=== PATIENT | female | born 1970 | race Caucasian/White ===

== ENCOUNTER 2016-10-21 16:09 | Emergency (ER) | payer OTHER ==
[~2016-10-21] VITALS: Ht 182.9 cm; Wt 59.8 kg
[~2016-10-21 16:09] MED LIST: ACEBUTOLOL200 MG PO; AMBIEN10 MG OR; AMBIEN5 MG PO; AMLODIPINE5 MG PO; B-121000 MC1 IM; B-123000 MCG SL; BUPROPION75 MG PO; CARAFATE1 GM/10 M1 OR; CETIRIZINE10 MG PO; CIPRO500 MG OR; CIPROFLOXACN500 MG PO; CLARITIN10 M1 PO; CLINDAMYCIN150 MG PO; CLINDAMYCIN300 M1 PO; CLONAZEPAM1 MG PO; CLONIDINE0.1 MG PO; COMPAZINE10 MG OR; COZAAR50 MG PO; CVS IRON45 MG OR; CYANOCOBALAM1000 MC1 IJ; CYANOCOBALAM1000 MCG IM; DILAUDID2 MG OR; DILAUDID8 MG PO; DOCUSATE CAL240 MG PO; EFFEXOR37.5 MG PO; ELAVIL; ENDOCET1 TA1 OR; ESTRACE1 MG OR; FERROUS SULF325 M3 PO; FIORICET PO; FLEXERIL OR; FLEXERIL10 MG PO; FLEXERIL5 MG PO; FLONASE NASAL50 MCG; FOLIC ACID1 MG OR; FUROSEMIDE20 MG PO; HYDROCHLOROT25 MG PO; IBUPROFEN600 MG PO; K-DUR/KLOR-CON10 ME1 OR; K-DUR/KLOR-CON10 MEQ OR; K-LOR20 MEQ OR; K-TABS10 MEQ PO; KEPPRA XR500 MG PO; KLOR-CON 88 MEQ PO; LEVETIRACETAM500 MG PO; LISINOP/HCTZ1 TAB PO; LISINOPRIL20 MG PO; LOPRESSOR50 M1; LORAZEPAM0.5 MG PO; LORTAB 5 OR; LORTAB 5/3255 MG PO; METHADONE40 MG PO; MOTRIN JR100 MG OR; MOTRIN600 MG/TAB PO; MOTRIN800 MG/TAB PO; NAPROXEN SOD500 MG PO; NEXIUM40 M1 OR; NICOTINE PATCH; NORCO1 TA2 PO; NYSTATIN100000 M1 MT; OMEPRAZOLE10 MG OR; OMEPRAZOLE40 MG OR; OMEPRAZOLE40 MG PO; ONDANSETRON4 MG PO; OS-CAL 500500 MG OR; OXYCODONE30 MG OR; PAROXETINE10 MG PO; PATADAY OP; PAXIL30 MG PO; PAXIL40 MG PO; PERCOCET 5/325M1 TAB OR; PERCOCET 5/325M1 TAB PO; PERCOCET1 TA2 OR; PERCOCET1 TA3 OR; PILOCARPINE HCL 1% OP; POT CHLORIDE10 ME1 PO; PRILOSEC40 MG PO; PRINZIDE1 TA1 PO; PROCHLORPER OR; PROMETHAZINE25 M1 PO; PROVENTIL HFA IN; PROVERA5 MG OR; PROZAC10 MG PO; REGLAN5 MG OR; REMERON45 MG PO; ROXICODONE30 MG OR; RYBIX ODT50 MG PO; SAPHRIS5 MG SL; SERTRALINE HCL50 MG PO; SYMBICORT1 AE1 IN; TORADOL PO; TRAMADOL HCL50 MG PO; TRAZODONE50 MG PO; ULTRAM50 M1 PO; ULTRAM50 MG OR; ULTRAM50 MG PO; VALIUM10 MG; VALIUM10 MG OR; VALIUM10 MG PO; VALIUM5 MG PO; VIGAMOX OP; VIGAMOX OS; VITAMIN D50000 UN1 OR; XANAX0.5 MG OR; XANAX1 MG OR; ZANAFLEX4 M1 OR; ZANAFLEX4 MG OR; ZESTRIL/PRI10 MG/TAB PO; ZOLOFT100 MG OR; ZPAK PO; ZYRTEC10 M3 PO; [UNRECOGNIZED DRUG - CODE] XX; [UNRECOGNIZED DRUG - OTHER] PO; [UNRECOGNIZED DRUG - REMARK]
[2016-10-21] MEDS ORDERED: PHENERGAN25 MG/TAB PO (16:18)
[2016-10-21] MEDS ORDERED: RANITIDINE150 M1 PO (16:18)
[2016-10-21] MEDS ORDERED: SYSTANE OP (16:20)
[2016-10-21] MEDS ORDERED: ULTRAM50 M1 PO (17:35)
[2016-10-21 17:40] LABS: URINE BILIRUBIN - DIPSTICK NEGATIVE (NEGATIVE); URINE BLOOD DIPSTICK NEGATIVE (NEGATIVE); URINE CLARITY CLEAR; URINE COLOR YELLOW; URINE GLUCOSE - DIPSTICK NEGATIVE (NEGATIVE); URINE KETONE NEGATIVE (NEGATIVE); URINE LEUK ESTERASE NEGATIVE (NEGATIVE); URINE NITRITE - DIPSTICK NEGATIVE (Negative); URINE PROTEIN - DIPSTICK NEGATIVE (NEG-TRACE); URINE SPECIFIC GRAVITY 1.015; URINE UROBILINOGEN - DIPSTICK 0.2 E.U./dL (0.2)
[2016-10-21] MEDS ORDERED: LORTAB 10-325 M1 TAB PO (17:53)
[2016-10-21 17:56] VITALS: BP 143/84
== END 2016-10-21 18:00 | disposition home or self-care (01) | DRG 605 ==
LOC: ED 16:09
PROVIDERS: Emergency Medicine
DX: S40.012A Contusion of left shoulder, initial encounter (principal); S00.93XA Contusion of unspecified part of head, initial encounter; S20.212A Contusion of left front wall of thorax, initial encounter; W01.10XA Fall on same level from slipping, tripping and stumbling with subsequent striking against unspecified object, initial encounter; Y93.9 Activity, unspecified; Y92.008 Other place in unspecified non-institutional (private) residence as the place of occurrence of the external cause

== ENCOUNTER 2017-01-03 19:09 | Inpatient (IN) | payer SELFPAY ==
[~2017-01-03] VITALS: Ht 177.8 cm; Wt 53.0 kg
[~2017-01-03 19:09] MED LIST changes: +LORTAB 10-325 M1 TAB PO; +PHENERGAN25 MG/TAB PO; +RANITIDINE150 M1 PO; +SYSTANE OP
[2017-01-03 20:11] LABS: HEMATOCRIT 44.8 % (37.0-47.0); HEMOGLOBIN 15.7 g/dl (12.0-16.0); IMMATURE GRANULOCYTES 0.4 % (0.0-1.0); MEAN CORPUSCULAR HGB 29.1 pG CALC (26.0-32.0); NEUT# 5.45 thou/uL (2.00-7.15); RED BLOOD COUNT 5.4 mill/uL (4.20-5.60); RED CELL DISTRI WIDTH 15.3 % (11.5-15.5)
[2017-01-03 20:13] LABS: URINE BILIRUBIN - DIPSTICK NEGATIVE (NEGATIVE); URINE BLOOD DIPSTICK NEGATIVE (NEGATIVE); URINE CLARITY SLIGHT CLOUDY; URINE COLOR YELLOW; URINE GLUCOSE - DIPSTICK NEGATIVE (NEGATIVE); URINE KETONE NEGATIVE (NEGATIVE); URINE LEUK ESTERASE NEGATIVE (NEGATIVE); URINE NITRITE - DIPSTICK NEGATIVE (Negative); URINE PROTEIN - DIPSTICK NEGATIVE (NEG-TRACE)
[2017-01-03 20:16] LABS: COCAINE NEGATIVE (NEGATIVE); METHADONE NEGATIVE (NEGATIVE); TETRAHYDROCANNABIONOL NEGATIVE (NEGATIVE)
[2017-01-03 20:17] LABS: BARBITURATES NEGATIVE (NEGATIVE); OXCYCODONE NEGATIVE (NEGATIVE); TRICYLIC ANTIDEPRESSANTS POSITIVE (NEGATIVE)
[2017-01-03 20:27] LABS: ALBUMIN 4.4 g/dL (3.2-5.0); ALKALINE PHOSPHATASE 87 u/l (38-126); ANION GAP 19 (6-22 (CALC)); BILIRUBIN, TOTAL 0.8 mg/dL (0.0-1.4); BUN 17 mg/dL (7-17); BUN/CREATININE RATIO 14 (12-20 (CALC)); CALCIUM 9.1 mg/dL (8.4-10.2); CARBON DIOXIDE 20 mmol/l (22-30); CHLORIDE 87 mmol/l (95-108); CREATININE 1.2 mg/dL (0.5-1.0); GFR 48 ML/MIN (>=60 (CALC)); GFR FOR AFR.AMER. 58 ML/MIN (>=60 (CALC)); GLUCOSE 119 mg/dL (65-105); POTASSIUM 2.7 mmol/l (3.5-5.1); SGOT/AST 35 u/l (14-36); SGPT/ALT 31 u/l (9-52); SODIUM 123 mmol/l (137-146); TOTAL PROTEIN 7.1 g/dL (6.3-8.2)
[2017-01-03 20:29] LABS: ETHYL ALCOHOL 0 mg/dl (0-30)
[2017-01-03 22:40] VITALS: BP 117/62
[2017-01-03 22:52] LABS: CALCIUM 8.5 mg/dL (8.4-10.2); CREATININE 1.2 mg/dL (0.5-1.0); POTASSIUM 3.5 mmol/l (3.5-5.1)
[2017-01-03 23:00] VITALS: BP 117/62
[2017-01-03 23:15] VITALS: BP 127/56
[2017-01-03 23:30] VITALS: BP 127/56
[2017-01-04] VITALS (14 sets, daily range): BP systolic 114–178; BP diastolic 52–84
[2017-01-04] MEDS ORDERED: ZOLPIDEM TARTRA10 MG PO (04:00)
[2017-01-04] MEDS ORDERED: PROVENTIL108 MCG/AC PO (04:11)
[2017-01-04] MEDS ORDERED: LEVETIRACETAM500 MG PO (04:27)
[2017-01-04] MEDS ORDERED: CLONIDINE HCL0.2 MG PO (04:28)
[2017-01-04] MEDS ORDERED: CLONAZEPAM1 M1 PO (04:28)
[2017-01-04] MEDS ORDERED: SYMBICORT1 AE1 IN (04:29)
[2017-01-04] MEDS ORDERED: TRAZODONE50 MG PO (04:31)
[2017-01-04] MEDS ORDERED: MOTRIN800 MG PO (04:34)
[2017-01-04] MEDS ORDERED: VENLAFAXINE75 M2 PO (04:38)
[2017-01-04] MEDS ORDERED: RANITIDINE HCL150 MG PO (04:39)
[2017-01-04] MEDS ORDERED: PAROXETINE HCL40 MG PO (04:42)
[2017-01-04 06:23] LABS: ANION GAP 14 (6-22 (CALC)); BUN 17 mg/dL (7-17); BUN/CREATININE RATIO 19 (12-20 (CALC)); CALCIUM 8.2 mg/dL (8.4-10.2); CARBON DIOXIDE 21 mmol/l (22-30); CHLORIDE 97 mmol/l (95-108); CREATININE 0.9 mg/dL (0.5-1.0); GFR > 60 ML/MIN (>=60 (CALC)); GFR FOR AFR.AMER. > 60 ML/MIN (>=60 (CALC)); GLUCOSE 106 mg/dL (65-105); POTASSIUM 4.7 mmol/l (3.5-5.1); SODIUM 127 mmol/l (137-146)
[2017-01-04 13:05] LABS: ANION GAP 15 (6-22 (CALC)); BUN 14 mg/dL (7-17); BUN/CREATININE RATIO 19 (12-20 (CALC)); CALCIUM 8.6 mg/dL (8.4-10.2); CARBON DIOXIDE 24 mmol/l (22-30); CHLORIDE 96 mmol/l (95-108); CREATININE 0.8 mg/dL (0.5-1.0); GFR > 60 ML/MIN (>=60 (CALC)); GFR FOR AFR.AMER. > 60 ML/MIN (>=60 (CALC)); GLUCOSE 106 mg/dL (65-105); POTASSIUM 4.6 mmol/l (3.5-5.1); SODIUM 130 mmol/l (137-146)
[2017-01-05 04:03] VITALS: BP 148/70
[2017-01-05 04:38] LABS: HEMATOCRIT 37.3 % (37.0-47.0); HEMOGLOBIN 12.7 g/dl (12.0-16.0); IMMATURE GRANULOCYTES 0.3 % (0.0-1.0); MEAN CELL VOLUME 85.7 fL CALC (80.0-100.0); MEAN CORPUSCULAR HGB 29.2 pG CALC (26.0-32.0); NEUT# 4.3 thou/uL (2.00-7.15); RED BLOOD COUNT 4.35 mill/uL (4.20-5.60); RED CELL DISTRI WIDTH 15.6 % (11.5-15.5)
[2017-01-05 04:57] LABS: ANION GAP 11 (6-22 (CALC)); BUN 11 mg/dL (7-17); BUN/CREATININE RATIO 18 (12-20 (CALC)); CALCIUM 8.4 mg/dL (8.4-10.2); CARBON DIOXIDE 24 mmol/l (22-30); CHLORIDE 98 mmol/l (95-108); CREATININE 0.6 mg/dL (0.5-1.0); GFR > 60 ML/MIN (>=60 (CALC)); GFR FOR AFR.AMER. > 60 ML/MIN (>=60 (CALC)); GLUCOSE 74 mg/dL (65-105); POTASSIUM 4.4 mmol/l (3.5-5.1); SODIUM 129 mmol/l (137-146)
[2017-01-05 10:00] VITALS: BP 193/85
[2017-01-05 14:00] VITALS: BP 152/72
[2017-01-05 19:30] VITALS: BP 167/64
[2017-01-06] VITALS (9 sets, daily range): BP systolic 138–179; BP diastolic 63–87
[2017-01-06 04:58] LABS: ANION GAP 12 (6-22 (CALC)); BUN 8 mg/dL (7-17); BUN/CREATININE RATIO 15 (12-20 (CALC)); CALCIUM 8.8 mg/dL (8.4-10.2); CARBON DIOXIDE 24 mmol/l (22-30); CHLORIDE 97 mmol/l (95-108); CREATININE 0.5 mg/dL (0.5-1.0); GFR > 60 ML/MIN (>=60 (CALC)); GFR FOR AFR.AMER. > 60 ML/MIN (>=60 (CALC)); GLUCOSE 80 mg/dL (65-105); MAGNESIUM 1.9 mg/dL (1.6-2.3); POTASSIUM 4.3 mmol/l (3.5-5.1); SODIUM 128 mmol/l (137-146)
[2017-01-06 06:01] LABS: HEMOGLOBIN 12.7 g/dl (12.0-16.0); MEAN CELL VOLUME 85.8 fL CALC (80.0-100.0); MEAN CORPUSCULAR HGB 29.5 pG CALC (26.0-32.0); MEAN CORPUSCULAR HGB CONC 34.3 g/L CALC (32.0-36.0); RED BLOOD COUNT 4.31 mill/uL (4.20-5.60); RED CELL DISTRI WIDTH 15.3 % (11.5-15.5)
[2017-01-06] MEDS ORDERED: LEVETIRACETAM500 MG PO (11:16)
[2017-01-06] MEDS ORDERED: LISINOPRIL10 MG PO (11:16)
[2017-01-07 04:54] VITALS: BP 136/70
[2017-01-07 07:16] LABS: ANION GAP 14 (6-22 (CALC)); BUN 8 mg/dL (7-17); BUN/CREATININE RATIO 13 (12-20 (CALC)); CALCIUM 8.4 mg/dL (8.4-10.2); CARBON DIOXIDE 24 mmol/l (22-30); CHLORIDE 97 mmol/l (95-108); CREATININE 0.6 mg/dL (0.5-1.0); GFR > 60 ML/MIN (>=60 (CALC)); GFR FOR AFR.AMER. > 60 ML/MIN (>=60 (CALC)); GLUCOSE 74 mg/dL (65-105); MAGNESIUM 1.9 mg/dL (1.6-2.3); POTASSIUM 4.6 mmol/l (3.5-5.1); SODIUM 130 mmol/l (137-146)
[2017-01-07 09:00] VITALS: BP 174/66
[2017-01-07 09:10] VITALS: BP 174/66
== END 2017-01-07 13:05 | disposition home or self-care (01) | DRG 918 ==
LOC: ED 19:09 → ED-I 21:10 → ED 21:59 → ICU 22:00
PROVIDERS: Emergency Medicine; Internal Medicine; Nurse Practitioner Family; ADMIT Internal Medicine; ATTEND Internal Medicine
PROC: 0HQ0XZZ Repair Scalp Skin, External Approach (ICD-10-PCS; principal; 2017-01-03)
DX: T65.92XA Toxic effect of unspecified substance, intentional self-harm, initial encounter (principal); N17.9 Acute kidney failure, unspecified; R56.1 Post traumatic seizures; E87.1 Hypo-osmolality and hyponatremia; E87.8 Other disorders of electrolyte and fluid balance, not elsewhere classified; F11.20 Opioid dependence, uncomplicated; Z68.1 Body mass index [BMI] 19.9 or less, adult; E87.6 Hypokalemia; S01.01XA Laceration without foreign body of scalp, initial encounter; F20.9 Schizophrenia, unspecified; F31.9 Bipolar disorder, unspecified; X58.XXXA Exposure to other specified factors, initial encounter; G35 Multiple sclerosis; I10 Essential (primary) hypertension; R53.82 Chronic fatigue, unspecified; F17.210 Nicotine dependence, cigarettes, uncomplicated; R63.0 Anorexia; M79.7 Fibromyalgia; E86.0 Dehydration; Z85.038 Personal history of other malignant neoplasm of large intestine; Y92.008 Other place in unspecified non-institutional (private) residence as the place of occurrence of the external cause; Z87.820 Personal history of traumatic brain injury; Z86.73 Personal history of transient ischemic attack (TIA), and cerebral infarction without residual deficits; Z91.5 Personal history of self-harm; Z91.14 Patient's other noncompliance with medication regimen

== ENCOUNTER 2018-03-09 12:52 | Emergency (ER) | payer OTHER ==
[~2018-03-09] VITALS: Ht 177.8 cm; Wt 54.5 kg
[~2018-03-09 12:52] MED LIST changes: +CLONAZEPAM1 M1 PO; +CLONIDINE HCL0.2 MG PO; +LISINOPRIL10 MG PO; +MOTRIN800 MG PO; +PAROXETINE HCL40 MG PO; +PROVENTIL108 MCG/AC PO; +RANITIDINE HCL150 MG PO; +VENLAFAXINE75 M2 PO; +ZOLPIDEM TARTRA10 MG PO
[2018-03-09] MEDS ORDERED: LORTAB 1010 MG PO (14:06)
[2018-03-09 14:23] VITALS: BP 153/78
== END 2018-03-09 14:28 | disposition home or self-care (01) ==
LOC: ED 12:52
DX: S93.401A Sprain of unspecified ligament of right ankle, initial encounter (principal); I10 Essential (primary) hypertension; F32.9 Major depressive disorder, single episode, unspecified; F17.210 Nicotine dependence, cigarettes, uncomplicated; V09.20XA Pedestrian injured in traffic accident involving unspecified motor vehicles, initial encounter; Y92.481 Parking lot as the place of occurrence of the external cause; Z87.820 Personal history of traumatic brain injury

== ENCOUNTER 2020-02-14 22:45 | Inpatient (IN) | payer OTHER ==
[~2020-02-14] VITALS: Ht 177.8 cm; Wt 45.0 kg
[~2020-02-14 22:45] MED LIST changes: +LORTAB 1010 MG PO; +PAROXETINE HCL30 MG PO; -PAROXETINE HCL40 MG PO; +VENLAFAXINE HCL75 M1 PO; -VENLAFAXINE75 M2 PO
--- NOTE | 2020-02-14 22:47 | NUR ---
PATIENT TO ROOM 12 VIA EMS STRETCHER. PATIENT UNDRESSED INTO A GOWN. TRIAGE COMPLETED AT BEDSIDE.
[2020-02-14 23:54] LABS: HEMATOCRIT 38.7 % (37.0-47.0); IMMATURE GRANULOCYTES 0.3 % (0.0-5.0); MEAN CORPUSCULAR HGB 31.9 pG CALC (26.0-32.0); MEAN CORPUSCULAR HGB CONC 32.8 g/dL CAL (32.0-36.0); NEUT# 5.44 thou/uL (2.00-7.15); RED BLOOD COUNT 3.98 mill/uL (4.20-5.60); RED CELL DISTRI WIDTH 18.1 % (11.5-15.5)
[2020-02-14 23:55] LABS: HEMOGLOBIN 12.7 g/dl (12.0-16.0); MEAN CELL VOLUME 97.2 fL CALC (80.0-100.0)
[2020-02-15] MEDS ORDERED: KEPPRA500 M2 PO (00:05)
[2020-02-15] MEDS ORDERED: SINGULAIR10 MG PO (00:07)
--- NOTE | 2020-02-15 00:07 | NUR ---
PATIENT ABLE TO GET HERSELF OUT OF BED AND TO STAND AND PIVOT INDEPENDENTLY TO THE BEDSIDE COMMODE.
[2020-02-15 00:21] LABS: ALKALINE PHOSPHATASE 114 u/l (38-126); ANION GAP 9 (6-22 (CALC)); BUN 12 mg/dL (7-17); BUN/CREATININE RATIO 15 (12-20 (CALC)); CARBON DIOXIDE 23 mmol/l (22-30); CHLORIDE 102 mmol/l (95-108); CREATININE 0.8 mg/dL (0.5-1.0); GFR > 60 ML/MIN (>=60 (CALC)); GFR FOR AFR.AMER. > 60 ML/MIN (>=60 (CALC)); POTASSIUM 3.8 mmol/l (3.5-5.1); SGOT/AST 26 u/l (14-36); SODIUM 130 mmol/l (137-146); TOTAL PROTEIN 5.3 g/dL (6.3-8.2)
[2020-02-15 00:25] LABS: ALBUMIN 2.8 g/dL (3.2-5.0)
--- NOTE | 2020-02-15 00:43 | NUR ---
PATIENT RESTING QUIETLY AT THIS TIME AFTER RETURNING FROM RADIOLOGY, NO C/OPAIN OR DISCOMFORT, NO S/S OF DISTRESS NOTED, RESPIRATIONS EVEN AND UNLABORED, AWAITING INPATIENT BED.
[2020-02-15 00:55] LABS: URINE BILIRUBIN - DIPSTICK NEGATIVE (NEGATIVE); URINE COLOR YELLOW; URINE GLUCOSE - DIPSTICK NEGATIVE (NEGATIVE); URINE KETONE NEGATIVE (NEGATIVE); URINE LEUK ESTERASE NEGATIVE (NEGATIVE); URINE PH 6.5 (4.5-8.0); URINE PROTEIN - DIPSTICK NEGATIVE (NEG-TRACE)
[2020-02-15 00:58] LABS: URINE BLOOD DIPSTICK NEGATIVE (NEGATIVE); URINE NITRITE - DIPSTICK POSITIVE (Negative)
[2020-02-15 00:59] LABS: URINE BACTERIA MANY hpf; URINE EPITHELIAL CELLS MODERATE EPI/hpf (0-FEW)
--- NOTE | 2020-02-15 01:37 | NUR ---
HAND OFF REPORT GIVEN TO RAMSES, PATIENT TO INPATIENT TREATMENT ROOM BY MICAER.
--- NOTE | 2020-02-15 01:50 | NUR ---
RECEIVED FROM ER VIA STRETCHER. PATIENT TRANSFERRED SELF FROM STRETCHER TO BED. ORIENTED TO SURROUNDINGS. REVIEWED USE OF CALL GUZMAN AND BED CONTROLS. PLACED ON AGRICULTURAL APPRAISER SHOWING SR. RESP NON-LABORED. PITTING EDEMA TO BLE. SALINE LOCK TO LAC, NS STARTED AT 125 ML/HR ORDERED. DISCUSSED PLAN OF CARE. CALL GUZMAN IN REACH.
[2020-02-15 02:00] VITALS: BP 135/75
--- NOTE | 2020-02-15 02:15 | NUR ---
PATIENT CONCERNED OVER GETTING UP TO BSC D/T WEAKNESS. EXPLAINED USE OF PUREWICK AND PATIENT IS AGREEABLE. PUREWICK PLACED.
[2020-02-15 06:33] VITALS: BP 126/83
--- NOTE | 2020-02-15 06:53 | NUR ---
PT note Patient is screened for PT intervention and she may benefit from PT consult if medical agrees to address weakness and functional assessment
[2020-02-15 07:26] VITALS: BP 124/81
--- NOTE | 2020-02-15 07:26 | NUR ---
pt awake in bed; no apparent distress noted; pt offers no complaints at this time; pt alert and oriented; denies pain; no n/v noted; pt with complaints of heart fluttering and palpitations; NSR on monitor; resp even and unlabored; skin color pale; ra; lungs clear throughout; hr reg; strong pulses; 1+ edema noted to ble; sr on monitor; abd soft with bs present; no bm noted per underwriter mortgage loan; purewick catheter intact; no urine to inspect at this time; #22 patent to [facility] ivf infusing without complication; no redness or edema noted at site; skin very dry and flaky moreso to lower extremities; pt appears very malnourished/ emaciated; pt very weak; requires assist with adls; plan of care/ am meds explained; call light within reach; will continue to monitor
--- NOTE | 2020-02-15 08:24 | NUR ---
Dr Barreto present at bedside to assess pt and discuss plan of care
--- NOTE | 2020-02-15 09:19 | NUR ---
pt repositioned to right side with pillow placed under left side; freq repositioning encouraged
--- NOTE | 2020-02-15 09:39 | NUR ---
PT present at bedside to [facility]
--- NOTE | 2020-02-15 10:00 | NUR ---
resting in bed with eyes closed; no apparent distress noted; pt offers no complaints; sr on monitor; iv intact and patent; call light within reach; will continue to monitor
--- NOTE | 2020-02-15 10:30 | NUR ---
lg urinary incont noted; pericare per staff; linens change; purewick ineffective while lying on side; repositioned to left side; oral care per pt; will continue to monitor
--- NOTE | 2020-02-15 10:43 | NUR ---
pt tongue trimmer light; requesting home meds; LALO Garner notified; awaiting orders;
--- NOTE | 2020-02-15 11:10 | NUR ---
pt assist to bsc; voided 200cc cloudy foul smeeling urine; pericare per pt; assisted back to bed; st low 100 with activity; iv intact and patent; WILDLAND FIRE OPERATIONS SPECIALIST Judithee notified of positive UA and odor; odors received and on chart
--- NOTE | 2020-02-15 12:09 | NUR ---
awake in bed eating lunch; no apparent distress noted; pt offers no complaints; iv intact and patent; no redness or edema noted at site; sr on monitor; call light within reach; will continue to monitor
[2020-02-15 12:24] VITALS: BP 112/71
--- NOTE | 2020-02-15 12:55 | NUR ---
up to bsc with assist
--- NOTE | 2020-02-15 13:15 | NUR ---
pt back to bed; up x2 max assist; purewick reapplied
--- NOTE | 2020-02-15 14:03 | NUR ---
resting with eyes closed; supine positioned; iv intact and patent; sr on monitor; call light within reach; will continue to monitor
--- NOTE | 2020-02-15 15:48 | NUR ---
pt awake yard conductor light; pt requesting bsc; states she feel asleep and awakened needing to pee; purewick catheter explained and in place; linens under pt checked and noted dry; pt expresses emotions/feeling; pt states I'm here and wanting to go to rehab to get my strength back; pt denies ability to do adls per self; pt denies abilty to remove lid of cup of grapes; pt reassured; staff has been at bedside throughout day to assist pt with various needs; will continue to monitor
[2020-02-15 16:00] VITALS: BP 127/75
--- NOTE | 2020-02-15 16:00 | NUR ---
pt awake in bed conversing on cell phone; no apparent distress noted; iv intact and patent; sr on monitor; purewick intact and functioning well; call light within reach; will continue to monitor
--- NOTE | 2020-02-15 16:36 | NUR ---
pt clinical information systems director light for assistance turning; software writer at bedside; pt admits to being able to turn self to right side; admits to being comfortable; purewick checked and intact; pt request phone number to cafeteria; pt request for roasted cauliflower to be "well done"; dietary notified of pt request; will continue to monitor
--- NOTE | 2020-02-15 17:46 | NUR ---
awake in bed eating dinner; no apparent distress noted; iv intact and patent; no redness or edema noted at site; sr on monitor; call light within reach;
--- NOTE | 2020-02-15 18:03 | NUR ---
pt director professional services light; advertising copy writer at bedside; pt requesting to sit on side of bed for dinner d/t feeling smothered (assisted per this advertising copy writer); pt with complaints about blankets smothering her and position of the bed; pt strongly encouraged to lower blankets from neck if needed and reposition self in bed if needed; reassured staff is here to assist;
--- NOTE | 2020-02-15 19:14 | NUR ---
ASSESSMENT COMPLETED; NO RESP. DISTRESS NOTED. PT. ON LEAD DATA ENTRY OPERATOR AND READING SR. COCCYX BLANCHABLE, BUT INTACT. PT. ABLE TO PULL HERSELF UP IN BED AND REPOSITION AND ENCOURAGED TO REPOSITION WHILE IN BED; VERBALIZES UNDERSTANDING. IV SITE PATENT AND INFUSING ORDERED IVF WELL, NO REDNESS NOTED TO SITE. PT. ASSISTED TO SIT UP AND MIX COFFEE; PT. REPORTS SHE IS UNABLE TO OPEN UP CREAMER AND SUGAR HERSELF; ENCOURAGED TO ATTEMPT TASKS AT HAND. PURE WIC ADJUSTED AT THIS TIME. CALL LIGHT IS IN REACH. WILL CONTINUE TO MONITOR.
--- NOTE | 2020-02-15 20:00 | NUR ---
PT. ASKED IF SHE WOULD LIKE A STOOL SOFTNER AND/OR LAXATIVE OR PRUNE JUICE TO ASSIST WITH BM AND PT. DECLINES. PT. REPORTS SHE ONLY GOES ONCE A WEEK NORMALLY.
--- NOTE | 2020-02-15 20:10 | NUR ---
PT. REQUESTING IBUPROFEN THAT SHE TAKES AT HOME FOR ARTHRITIS AND A SLEEPING AIDE; PT. ALSO REPORTS SHE WAS TEKING AMBIEN 10MG AT HOME AND WOULD LIKE SOMETHING FOR SLEEP; NOTIFIED DR. MENG OF THIS; NEW ORDERS RECEIVED.
[2020-02-15 21:00] VITALS: BP 116/77
--- NOTE | 2020-02-15 21:17 | NUR ---
PT. ASSISTED TO REPOSITION IN BED AND PUREWIC IN PLACE; NO INCONTINENCE NOTED. MEDICATED WITH ORDERED PRN IBUPROFEN AND SONATA FOR PAIN/SLEEP; WILL REASSESS. CLONIDINE HELD R/T B/P 116/; WILL REASSESS LATER TO SEE IF THERE IS A NEED.
--- NOTE | 2020-02-15 23:35 | NUR ---
VSS; NO DISTRESS NOTED; DENIES PAIN. REPOSITIONED IN BED WITH STAFF ASSISTANCE. PADS CHANGED UNDERNEATH THE PT. AND HALI CARE PROVIDED. CALL LIGHT IS IN REACH.
[2020-02-16] VITALS: BP 125/76
--- NOTE | 2020-02-16 00:25 | NUR ---
PT. ASSSITED TO REPOSITION AGAIN IN BED; DENIES FURTHER NEEDS.
[2020-02-16 03:40] VITALS: BP 116/63
--- NOTE | 2020-02-16 03:41 | NUR ---
PT. GIVEN A CBB AND HAIR WASHED AND COMBED; APPLIED LOTION TO EXTREMETIES AND ALOE BARRIER CREAM APPLIED TO COCCYX; NEW PURE WIC APPLIED. REPOSITIONED. MEDICATED WITH PRN IBUPROFEN FOR GENERALIZED PAIN; WILL REASSESS. VSS. PO FLUIDS OFFERED. IV SITE PATENT AND ORDERED IVF INFUSING WELL; NO S/S OF INFILTRATION NOTED. CALL LIGHT IS IN REACH. VOICES NO FURTHER CONCERNS.
--- NOTE | 2020-02-16 04:15 | NUR ---
ASSISTED PT. TO FIX BLANKETS AND REPOSITION; PT. IS ENCOURAGED TO TRY AND BE MORE INDEPENDANT AND PARTICIPATE WITH CARE; VERBALIZES UNDERSTANDING. PT. NOW ON RIGHT SIDE. PT. IS CHECKED FOR INCONTINENCE AND NONE NOTED. PUREWIC CANISTER EMPTIED OF 300MLS OF URINE. CALL LIGHT IS IN REACH.
--- NOTE | 2020-02-16 05:15 | NUR ---
PT. C/O NAUSEA AND MEDICATED WITH ORDERED PRN ZOFRAN GIVEN; WILL REASSESS.
--- NOTE | 2020-02-16 05:50 | NUR ---
PT. REPORTS NEW MEDS SHE TAKES AT HOME WHEN ROUNDING IS DONE; ENCOURAGED PT. TO SPEAK WITH MD THIS AM IN REGARDS TO ALL FURTHER MEDS SHE TAKES AT HOME; VERBALIZES UNDERSTANDING. NO DISTRESS NOTED.
--- NOTE | 2020-02-16 07:25 | NUR ---
pt awake, noted sitting on the side of bed per self; pt requesting staff take her downstairs to give her uncle her electric bill money/ declined; pt then request a wheelchair to take herself; pt admits to walking from bed to bedroom sink this am without difficulty/ declined for safety reasons; investment underwriter informed pt that her uncle could come to the floor to retrieve money; pt then request for someone to meet him downstairs to bring him up to unit; pt also request for lining caser to allow her to go home to take care of "house needs" prior to discharge; pt continues to sit on side of bed; safety explained; will continue to monitor
--- NOTE | 2020-02-16 07:30 | NUR ---
pt awake sitting on side of bed; no apparent distress noted; pt offers no complaints at this time; assessment completed; pt alert and oriented; denies pain at current; no n/v noted; resp even and unlabored; lungs clear bilat; skin color wnl; ra; hr reg; strong pulses; no edema noted; 1+ edema noted to bilat lower extremities; sr on monitor; abd soft with bs present; no bm noted per music writer; no urine to inspect at this time; bsc; purewick cath noted removed per pt; #20 patent to lac with ivf infusing without complication; no redness or edema noted at site; plan of care/ am meds explained; call light within reach; will continue to monitor
[2020-02-16 07:50] VITALS: BP 104/74
--- NOTE | 2020-02-16 08:00 | NUR ---
visitor present at bedside
--- NOTE | 2020-02-16 08:30 | NUR ---
pt correctional cook light requesting bsc; staff at bedside to assist; pt will not assist with ambulation/ transfer despite being able to sit herself up this am and admitting to ambulating to sink (unwitnessed); pt assist back to bed; purewick applied; will continue to monitor
--- NOTE | 2020-02-16 09:10 | NUR ---
Dr Knutson present at bedside to assess pt and discuss plan of care
--- NOTE | 2020-02-16 10:15 | NUR ---
awake in bed on cell phone; no apparent distress noted; iv intact and patent; no redness or edema noted at site; sr on monitor; call light within reach; will continue to monitor
[2020-02-16 11:47] VITALS: BP 132/75
--- NOTE | 2020-02-16 12:05 | NUR ---
pt has removed self from library monitor; staff at bedside to atttempt to reapply; pt refusing to allow staff to reapply cardiac leads or "touch her"; will continue to monitor
--- NOTE | 2020-02-16 12:12 | NUR ---
pt requesting montoring attachment to connected;
--- NOTE | 2020-02-16 12:45 | NUR ---
resting in bed; offers no complaints; call light within reach; will continue to monitor
--- NOTE | 2020-02-16 13:12 | NUR ---
report called to Hina Hannah RN
--- NOTE | 2020-02-16 13:30 | NUR ---
pt transferred to med surg tele 283 via bed with all pt belongings; update provided to Hina Hannah RN
--- NOTE | 2020-02-16 13:35 | NUR ---
PT CAME FROM ICU [id number]. PT CAME VIA BED BY NURSE. IVF INFUING WELL. CALL LIGHT IN REACH.
[2020-02-16 14:30] VITALS: BP 131/81
--- NOTE | 2020-02-16 16:19 | NUR ---
CHIEF LIBRARIAN WORK WITH BLIND AND I ASSISTED PT TO THE BATHROOM. PT DENIES ANY OTHER NEEDS AT THIS TIME. CALL LIGHT IN REACH.
[2020-02-16 19:00] VITALS: BP 126/82
--- NOTE | 2020-02-16 20:00 | NUR ---
PATIENT IS ALERT AND ORIENTED X3. ABLE TO MAKE NEEDS KNOWN. RESPIRATIONS EASY. #22 LAC INFUSING NORMAL SALINE AT 125 ML/HR. ON TELEMETRY. GM HOSE IN PLACE. PURWICK IN PLACE HOOKED UP TO SUCTION. TOLERATING WELL. PATIENT IS ASSIST X2 AND VERY WEAK. DENIES PAIN. BED IN LOW POSITION. CALL LIGHT WITHIN REACH.
[2020-02-17] VITALS: BP 140/89
--- NOTE | 2020-02-17 | NUR ---
PATIENT RESTING QUIETLY WITH EYES CLOSED. RESPIRATIONS EASY. BED IN LOW POSITION. CALL LIGHT WITHIN REACH.
[2020-02-17 04:00] VITALS: BP 145/86
--- NOTE | 2020-02-17 08:15 | NUR ---
ASSESSMENT DONE. PT IS A&O X3. PT STATED PAIN MEDICATION DID HELP. PT STATED NO PAIN AT THIS TIME. TELE IN PAIN. NO S/S OF DISTRESS NOTED. IVF INFUSING WELL. PUREWICK IN PLACE WITH YELLOW URINE NOTED. PT STATED SHE IS COLD. WARM BLANKET PROVIDED. PRUINE JUICE PROVIDED. PT DENIES ANY OTHER NEEDS AT THIS TIME. CALL LIGHT IN REACH.
[2020-02-17 08:25] VITALS: BP 125/89
--- NOTE | 2020-02-17 11:00 | NUR ---
PT IS RESTING IN BED WITH NO S/S DISTRESS NOTED. HALI CARE. PT DENIES ANY OTHER NEEDS AT THIS TIME. CALL LIGHT IN REACH.
[2020-02-17 11:39] VITALS: BP 130/80
[2020-02-17 15:46] VITALS: BP 145/87
--- NOTE | 2020-02-17 16:40 | NUR ---
LAC IV SITE INFILTRATE. REMOVED IV AND PT TOLERATED WELL. X3 NURSE TRY TO START IV BUT NO SUCCESS AT THIS TIME. CALL LIGHT IN REACH.
--- NOTE | 2020-02-17 17:50 | NUR ---
NOTIFIED DR. MENG RE: UNABLE TO GET IV SITE ON PT. X4 NURSE TRY. ORDERS RECEIVED.
--- NOTE | 2020-02-17 18:15 | NUR ---
ENCOURAGE PT TO TAKE THE DULCOLAX BUT PT REFUSED THE DULCOLAX.
[2020-02-17 19:00] VITALS: BP 136/83
--- NOTE | 2020-02-17 20:15 | NUR ---
PT IS IN BED RESTING, + BS IN ALL QUADRENTS, NO BM, PT REFUSED SUPPOSITORY, C/O 11/22 PAIN TO LOWER BACK, REQUEST PAIN MEDS PRN GIVEN AT 1999 WITH GOOD EFFECT, PT TOOK COLACE PO WITH MEDS, PRN SLEPING PILL.
--- NOTE | 2020-02-18 00:25 | NUR ---
PT WITH N.O FROM DR. MCFARLAND FOR PO CIPRO 500MG BID DUE TO IV SITE UNABLE TO PLACE, MED IN AND GIVEN TO PT AT 2215, SLEEPING IN BED WITH NO COMPLAINTS.
[2020-02-18 04:00] VITALS: BP 131/76
--- NOTE | 2020-02-18 04:34 | NUR ---
PT IS RESTING IN BED WITH NO S/S OF DISTRESS.
--- NOTE | 2020-02-18 07:05 | NUR ---
REPORT RECEIVED FROM KIANNA SHAH;PT APPEARS TO BE SLEEPING IN SEMI FOWLERS POSITION;RESPIRATIONS EVEN AND UNLABORED ON RA;NO S/S OF DISTRESS NOTED;ALL SAFETY PRECAUTIONS IN PLACE WITH BED IN THE LOWEST POSITION AND CALL LIGHT IN REACH;WILL CONTINUE TO MONITOR
--- NOTE | 2020-02-18 09:05 | NUR ---
PT RESTING IN SEMI FOWLERS POSITION,A&O X3; VS OBTAINED AND ASSESSMENT COMPLETED;RESPIRATIONS EVEN AND UNLABORED ON RA,DIMINISHED LUNG SOUNDS;ABDOMEN SOFT/RIGID ON PALPATION AND ACTIVE IN ALL 4 QUADRANTS;WEAK PEDAL PULSES;NO IV SITE,MD AWARE;PT REPORTS GENERALIZED PAIN RATING 9/10 ON THE PAIN SCALE AND REQUESTS PAIN MEDICATION,PT TO BE MEDICATED WITH PRN LORTAB 5/325MG PO;PT DENIES ANY ADDITIONAL NEEDS AT THIS TIME AND IS ENCOURAGED TO CALL FOR ASSISTANCE IF NEEDED;FALL AND SEIZURE PRECAUTIONS IN PLACE;CALL LIGHT IN REACH;WILL CONTINUE TO MONITOR
[2020-02-18 09:07] VITALS: BP 132/79
--- NOTE | 2020-02-18 12:35 | NUR ---
PT RESTING IN SEMI FOWLERS POSITION EATING LUNCH;RESPIRATIONS EVEN AND UNLABORED ON RA;PT DENIES ANY CURRENT PAIN OR DISCOMFORTS;FALL AND SEIZURE PRECAUTIONS REMAIN IN PLACE WITH BED IN THE LOWEST POSITION AND CALL LIGHT IN REACH;WILL CONTINUE TO MONITOR
--- NOTE | 2020-02-18 14:13 | NUR ---
PT REPORTS RIGHT SHOULDER PAIN RATING 8/10 ON THE PAIN SCALE AND REQUESTS PAIN MEDICATION,PT MEDICATED WITH PRN LORTAB 5/325MG PO AT THIS TIME;WILL CONTINUE TO MONITOR FOR EFFECTIVENESS
[2020-02-18 15:15] VITALS: BP 140/82
--- NOTE | 2020-02-18 17:15 | NUR ---
PT RESTING IN SEMI FOWLERS POSITION;RESPIRATIONS EVEN AND UNLABORED ON RA;PT DENIES ANY CURRENT PAIN OR NEEDS;COFFEE TO BE PROVIDED PER REQUEST;PUREWICK CATHETER IN PLACE;ASSESSMENT REMAINS UNCHANGED AT THIS TIME;ENCOURAGED TO CALL FOR ASSISTANCE IF NEEDED;FALL AND SEIZURE PRECAUTIONS REMAIN IN PLACE WITH BED IN THE LOWEST POSITION AND CALL LIGHT IN REACH;WILL CONTINUE TO MONITOR
[2020-02-18 19:00] VITALS: BP 138/52
--- NOTE | 2020-02-18 19:34 | NUR ---
RECEIVED REPORT FROM NURSE IGGY, PATIENT RESTING IN BED, AWAKE AT THIS TIME,NOT IN DISTRESS CALL LIGHT AT REACH.
--- NOTE | 2020-02-18 20:30 | NUR ---
PATIENT ALERT ORIENTED, ABLE TO MAKE NEEDS KNOWN, NO IV SITE, LBM 02/11, PATIENT DENIES PAIN AT THIS TIME, PATIENT TURNED AND REPOSITIONED, CONNECTED TO PUREWICK DRAINING YELLOW COLOR URINE.CALL LIGHT AT REACH.
--- NOTE | 2020-02-19 00:48 | NUR ---
PATIENT HAS A DUE TROPONIN, POKED X1 [id number] REFUSED TROPONIN BLOOD DRAWN, DR. MENG MADE AWARE.
[2020-02-19 04:00] VITALS: BP 138/38
--- NOTE | 2020-02-19 05:14 | NUR ---
PATIENT ALERT ORIENTED, REFUSED, MORNING BLOOD DRAW AT THIS TIME, WILL REPORT TO DAY SHIFT AND WILL MAKE BOROUGH COORDINATOR AWARE.CURRENTLY RESTING IN BED, EYES CLOSED, BREATHING EVEN UNLABORED CALL LIGHT AT REACH.
--- NOTE | 2020-02-19 05:49 | NUR ---
AWARE THAT RESIDENTY REFUSED MORNING LABS NO NEW ORDERS MADE.
--- NOTE | 2020-02-19 07:05 | NUR ---
REPORT RECEIVED FROM KIANNA QUINTANA;PT RESTING IN SEMI FOWLERS POSITION;INTRODUCED SELF TO PT AND POC DISCUSSED;RESPIRATIONS EVEN AND UNLABORED ON RA;PT DENIES ANY CURRENT PAIN OR NEEDS;ENCOURAGED TO CALL FOR ASSISTANCE IF NEEDED;FALL PRECAUTIONS IN PLACE WITH BED IN THE LOWEST POSITION AND CALL LIGHT IN REACH;WILL CONTINUE TO MONITOR
--- NOTE | 2020-02-19 08:25 | NUR ---
PT RESTING IN SEMI FOWLERS POSITION,A&O X3;VS OBTAINED AND ASSESSMENT COMPLETED;PT REPORTS GENERALIZED PAIN RATING 7/10 ON THE PAIN SCALE AND REQUESTS PAIN MEDICATION,PT TO BE MEDICATED WITH PRN LORTAB 5/325MG PO AND ZOFRAN 4MG PO FOR NAUSEA PER REQUEST;RESPIRATIONS EVEN AND UNLABORED ON RA,DIMINISHED LUNG SOUNDS;ABDOMEN SOFT ON PALPATION AND ACTIVE IN ALL 4 QUADRANTS;WEAK PEDAL PULSES;GENERALIZED BRUISING NOTED THROUHOUT;NO IV, MD AWARE;PT DENIES ANY ADDITIONAL NEEDS AT THIS TIME AND IS ENCOURAGED TO CALL FOR ASSISTANCE IF NEEDED;FALL AND SEIZURE PRECAUTIONS REMAIN IN PLACE;CALL LIGHT IN REACH;WILL CONTINUE TO MONITOR
[2020-02-19 08:26] VITALS: BP 140/69
[2020-02-19 08:30] VITALS: BP 140/69
--- NOTE | 2020-02-19 08:33 | NUR ---
AT BEDSIDE DISCUSSING POC INCUDING PLANS TO D/C HOME.
--- NOTE | 2020-02-19 08:34 | NUR ---
LETY AT BEDSIDE OBTAINING ECHOCARDIOGRAM.
--- NOTE | 2020-02-19 09:40 | NUR ---
XRAY AT BEDSIDE
--- NOTE | 2020-02-19 11:35 | NUR ---
PT APPEARS TO BE SLEEPING IN SEMI FOWLERS POSITION;RESPIRATIONS EVEN AND UNLABORED ON RA;NO S/S OF DISTRESS NOTED;PUREWICK CATHETER IN PLACE;ASSESSMENT REMAINS UNCHANGED AT THIS TIME;FALL AND SEIZURE PRECAUTIONS NOTED;CALL LIGHT IN REACH;WILL CONTINUE TO MONITOR
[2020-02-19] MEDS ORDERED: CIPROFLOXACN500 MG PO (13:29)
--- NOTE | 2020-02-19 14:40 | NUR ---
ALL DISCHARGE INSTRUCTIONS PROVIDED AT THIS TIME;PT INSTRUCTED TO F/U WITH PCP AND HAND CROWN POUNCER WITHIN THE NEXT WEEK, USE RECOMMENDATIONS PROVIDED BY DIETARY& COMPLETE COURSE OF ABX PRESCRIBED.CIPRO RX SENT TO PHARMACY; HOME HEALTH TO NOTIFY PT OF ACCEPTANCE BY [facility] 02/20/20 FOR PT;HOME MEDICATIONS PROVIDED BACK TO PT FOR D/C HOME;PT DENIES ANY ADDITIONAL QUESTIONS OR NEEDS;WHEELCHAIR TO BE PROVIDED FOR D/C HOME AND PT AMBULATED WITH ONE PERSON ASSIST TO CHAIR;UNCLE TO TRANSPORT PT HOME;WILL CONTINUE TO MONITOR
--- NOTE | 2020-02-19 14:43 | NUR ---
Discharge instructions given. Patient verbalizes understanding of same. Discharged in stable condition via Wheelchair to Home with family. All belongings sent with pt. PT TRANSPORTED TO [facility] IN STABLE CONDITION VIA WHEELCHAIR ACCOMPANIED BY ESTELA ALMENDAREZ;ALL BELONGINGS INCLUDING INSTRUCTIONS AND HOME MEDICATIONS LEFT WITH PT.UNCLE TO TRANSPORT PT HOME.
--- NOTE | 2020-02-19 14:44 | NUR ---
PT WAS SEEN THIS AFTERNOON FOR FUNCTIONAL RE-ASSESSMENT. PT WAS RESTING SUPINE IN THE BED REPORTING THAT SHE WAS NOT FEELING ANY BETTER. ENCOURAGED PT TO PARTICIPATE WITH FUNCTIONAL ACTIVITIES, HOWEVER, SHE FIRMLY DECLINED STATING THAT SHE HAS BEEN UNABLE TO DO ANYTHING AND WAS VERY UNSTABLE. CONSULTED WITH ATTENDING NURSE, IGGY, WHO REPORTS THAT PT HAS BEEN GIVEN ASSISTANCE AND WAS ABLE TO AMBULATE FROM BED TO/FROM BATHROOM. PT MAY BE DISCHARGED AT HOME WITH HOME HEALTH PHYSICAL THERAPY WHEN FUNCTIONAL LEVEL IMPROVES. PT SHOULD BE ABLE TO PERFORM SAFE AND INDEP AMB AT LEAST 50 FT X 2 WITH RW TO DETERMINE SAFE DISCHARGE TO HOME. [facility]: 12 POINTS
== END 2020-02-19 14:43 | disposition home health service (06) | DRG 641 ==
LOC: ED 22:45 → ED-I 02-15 00:20 → ED 02-15 00:34 → ICU 02-15 00:35 → MS2 02-16 13:44
PROVIDERS: Emergency Medicine; ADMIT Internal Medicine; ATTEND Internal Medicine
DX: E43 Unspecified severe protein-calorie malnutrition (principal); E87.1 Hypo-osmolality and hyponatremia; Z68.1 Body mass index [BMI] 19.9 or less, adult; R64 Cachexia; N39.0 Urinary tract infection, site not specified; R56.1 Post traumatic seizures; R62.7 Adult failure to thrive; J44.9 Chronic obstructive pulmonary disease, unspecified; I10 Essential (primary) hypertension; F32.9 Major depressive disorder, single episode, unspecified; R01.1 Cardiac murmur, unspecified; G35 Multiple sclerosis; C50.919 Malignant neoplasm of unspecified site of unspecified female breast; F20.9 Schizophrenia, unspecified; M19.90 Unspecified osteoarthritis, unspecified site; M79.7 Fibromyalgia; F17.210 Nicotine dependence, cigarettes, uncomplicated; B96.20 Unspecified Escherichia coli [E. coli] as the cause of diseases classified elsewhere; Z91.11 Patient's noncompliance with dietary regimen; Z85.038 Personal history of other malignant neoplasm of large intestine; Z90.49 Acquired absence of other specified parts of digestive tract; Z86.73 Personal history of transient ischemic attack (TIA), and cerebral infarction without residual deficits; Z87.820 Personal history of traumatic brain injury; Z20.828 Contact with and (suspected) exposure to other viral communicable diseases